=== PATIENT | male | born 1960 | race Caucasian/White ===

== ENCOUNTER 2017-09-01 14:37 | Emergency (ER) | payer OTHER ==
[~2017-09-01] VITALS: Ht 177.8 cm; Wt 111.0 kg
[~2017-09-01 14:37] MED LIST: PREV30CA36; PREV30CA36 PO
[2017-09-01 14:44] VITALS: BP 140/85; PULSE 77; RESP 16; TEMP 97.5; O2SAT 98
[2017-09-01] MEDS ORDERED: BACTOIN EACH NARE (15:20)
[2017-09-01] MEDS ORDERED: DICL75TA PO (15:20)
[2017-09-01] MEDS ORDERED: HYDR-3533 PO (15:20)
[2017-09-01] MEDS ORDERED: BACT800T5 PO (15:20)
--- NOTE | 2017-09-01 15:26 | PD ---
HPI Chief Complaint: Laceration/Skin Injury Time Seen by Provider: 15:10 Travel History International Travel<30 days: No Contact w/Intl Traveler<30days: No Traveled to known affect area: No History of Present Illness HPI 57-year-old male that presents to the ED for evaluation of fall from a ladder. Per patient he fell from a 5 foot ladder and lost his balance. Per patient she did not hit his head or lose consciousness. Patient cut himself on his left leg as well as injured his left thumb has an abrasion to his right arm. He denies any back pain or neck pain. Able to ambulate with no issues. He isn't sure of his last tetanus booster. Per patient his pain is 8 out of 10 especially on the thumb and the laceration on the left leg. Denies any hip pain. No abdominal pain. No chest pain. No blood thinner use. Injury occurred less than 2 hours ago. Able to move all extremities and fingers. Denies any numbness, tilling, weakness. No allergies to medication. PFSH Past Medical History Heart Rhythm Problems: No Cardiac Catheterization: No Cardiovascular Problems: No High Cholesterol: No Congestive Heart Failure: No Diabetes: No GERD: Yes Hypertension: No Myocardial Infarction: No Past Surgical History Coronary Artery Bypass Graft: No Joint Replacement: Yes (RIGHT KNEE) Social History Alcohol Use: Yes (SOCIALLY) Tobacco Use: No Substance Use: No Allergies-Medications (Allergen,Severity, Reaction): Coded Allergies: No Known Allergies (Verified , 09/01/17) Reported Meds & Prescriptions Reported Meds & Active Scripts Active Bactroban Nasal Oint (Mupirocin Nasal Oint) 2% Oint 1 Applic EACH NARE BID For 5 days. Bactrim DS (Sulfamethoxazole-Trimethoprim) 800-160 Mg Tab 1 Tab PO BID 7 Days Lortab (Hydrocodone-Acetaminophen) 5-325 Mg Tab 1 Tab PO Q6H PRN Diclofenac Sodium DR (Diclofenac Sodium) 75 Mg Tabdr 75 Mg PO BID PRN Review of Systems Except as stated in HPI: all other systems reviewed are Neg Physical Exam Narrative GENERAL: SKIN: Warm and dry. HEAD: Atraumatic. Normocephalic. EYES: Pupils equal and round. No scleral icterus. No injection or drainage. ENT: No nasal bleeding or discharge. Mucous membranes pink and moist. Tongue is midline. No uvula deviation. NECK: Trachea midline. No JVD. CARDIOVASCULAR: Regular rate and rhythm. No murmurs, S3, S4. RESPIRATORY: No accessory muscle use. Clear to auscultation. Breath sounds equal bilaterally. GASTROINTESTINAL: Abdomen soft, non-tender, nondistended. Hepatic and splenic margins not palpable. MUSCULOSKELETAL: Extremities without clubbing, cyanosis, or edema. No obvious deformities. Full range of motion of the upper and lower extremities bilaterally. 2+ pulses bilaterally. Patient does have reproducible pain on the left first metacarpal carpal. Some bruising noted but minimal. Patient has a superficial abrasion to the right forearm. Patient does have an abrasion as well as a laceration about 3 cm in length horizontal on the left tibia- fibula. No sign of bony involvement. No foreign body noted. No nerve, vessel , tendon damage noted. Slightly noted. Somewhat approximated. Patient able to move the upper and lower extremities bilaterally in all fingers with no distress. Good capillary refill. Sensation intact bilaterally. No lumbar, thoracic, cervical spine tenderness to palpation. No signs of head injury. NEUROLOGICAL: Awake and alert. No obvious cranial nerve deficits. Motor grossly within normal limits. Five out of 5 muscle strength in the arms and legs. Normal speech. PSYCHIATRIC: Appropriate mood and affect; insight and judgment normal. Data Data Last Documented VS Vital Signs Date Time Temp Pulse Resp B/P (MAP) Pulse Ox O2 Delivery O2 Flow Rate FiO2 09/01/17 14:44 97.5 77 16 140/85 (103) 98 Orders Orders Hand, Complete ([id number]) (09/01/17 15:16) Tibia/Fibula (Ap/Lat) (09/01/17 15:16) Ice/Cold Pack (09/01/17 15:16) Wound Care (09/01/17 15:16) Lidocaine 1% Inj (50 Ml) (Xylocaine 1% I (09/01/17 15:30) Tetanus/Diphtheria Tox Adult (Tetanus/Di (09/01/17 15:30) MDM Medical Decision Making Medical Screen Exam Complete: Yes Emergency Medical Condition: Yes Medical Record Reviewed: Yes Interpretation(s) xray of the left tibia and fibula No show no sign of bony injury. X-ray of the left hand show no sign of acute bony injury. Differential Diagnosis Laceration to his original versus fracture versus fall Narrative Course 57-year-old male that presents to the ED for evaluation of fall. Patient was properly examined and was found to have signs and symptoms concerning for bony injuries as well as lacerations. Imaging was ordered. After splint proceeded to the patient and she agreed to it laceration was repaired as stated in procedure note. Told to get celso removed in 14 days. Given prescription for Bactrim, Lortab, Bactroban and diclofenac sodium. Told to use ice or warm compresses. Watch for signs of infection. X-rays were negative for acute bony injury. Patient was reassured. See ED worsening symptoms. Follow-up with PCP. Procedures Procedure Narrative LACERATION LOCATION: left leg LENGTH: 2.5 cm NUMBER OF STITCHES/CELSO: 7 celso REPAIR: The area of the laceration was prepped with Betadine and sterilely draped. The laceration was infiltrated with 1% Xylocaine. The wound was copiously irrigated and explored without evidence of foreign body, tendon injury or neurovascular injury. The wound was closed using sterile stapler. This was a 1 layer repair. A sterile dressing was applied. The patient was advised to keep the dressing clean and dry. Patient tolerated the procedure well. Diagnosis Primary Impression: Fall Qualified Codes: W19.XXXA - Unspecified fall, initial encounter Additional Impressions: Multiple abrasions Laceration of leg, left Qualified Codes: S81.812A - Laceration without foreign body, left lower leg, initial encounter Patient Instructions: General Instructions Additional Instructions: Wound care daily with soap and water. You can apply bandaid if needed. Neosporyn or OTC antibiotic ointment to area as needed twice a day for at least 2 weeks to help with scarring and prevent infection. Meoderma OTC for scarring if needed. Avoid sun exposure for 2 months as the sun could make scar darker and more noticeable. Get sutures removed in 14 days. Take medications as prescribed. Follow-up with PCP. See ED for any worsening symptoms. Do not drink or drive while taking pain medication. Apply ice or heat as needed for pain Med/Other Pt SpecificInfo: Prescription(s) given, Wound Care Scripts Mupirocin Nasal Oint (Bactroban Nasal Oint) 2% Oint 1 APPLIC EACH NARE BID for Mgmt Bacterial Infection, #1 TUBE 0 Refills For 5 days. Prov: Highet,Yanira H. MD 09/01/17 Sulfamethoxazole-Trimethoprim (Bactrim DS) 800-160 Mg Tab 1 TAB PO BID for Infection for 7 Days, #14 TAB 0 Refills Prov: Yanira Ngo MD 09/01/17 Hydrocodone-Acetaminophen (Lortab) 5-325 Mg Tab 1 TAB PO Q6H Y for PAIN, #10 TAB 0 Refills Prov: Yanira Ngo MD 09/01/[address] (Diclofenac Sodium DR) 75 Mg Tabdr 75 MG PO BID Y for PAIN SCALE 1 TO 10, #20 TAB 0 Refills Prov: Yanira Ngo MD 09/01/17 Disposition: 01 DISCHARGE HOME Condition: Stable Joe Vincent Sep 01, 2017 15:26
[2017-09-01] MEDS ORDERED: LIDOCAINE HCL 1% 50 ML VIAL INFIL ONE (15:30)
[2017-09-01] MEDS ORDERED: TETANUS/DIPHTHERIA TOXOID ADULT 0.5 ML VIAL IM ONE (15:30)
--- NOTE | 2017-09-01 15:45 | RADRPT ---
EXAM DATE/TIME: 09/01/2017 15:21 [facility] COMPARISON: No previous studies available for comparison. INDICATIONS : Left hand pain post fall today. Patient states pain is mostly in first digit. MEDICAL HISTORY : None. SURGICAL HISTORY : None. ENCOUNTER: Initial ACUITY: 1 day PAIN SCORE: 5/10 LOCATION: Left hand. FINDINGS: Three views of the left hand demonstrate no fracture or dislocation. Mineralization is within normal limits and there is no significant arthropathy. No soft tissue abnormality or radiopaque foreign body is identified. A metallic ring overlies the fourth digit. CONCLUSION: No acute abnormality is identified. Marcelo Martines MD on September 01, 2017 at 15:42 Board Certified Radiologist. This report was verified electronically.
--- NOTE | 2017-09-01 15:54 | RADRPT ---
EXAM DATE/TIME: 09/01/2017 15:21 [facility] COMPARISON: No previous studies available for comparison. INDICATIONS : Left lower leg pain post fall. MEDICAL HISTORY : None. SURGICAL HISTORY : None. ENCOUNTER: Initial ACUITY: 1 day PAIN SCORE: 9/10 LOCATION: Left tibia/fibula. FINDINGS: Two view examination of the left tibia demonstrates no evidence of fracture or dislocation. Bony min eralization is normal. The soft tissue structures are intact. CONCLUSION: 1. Negative examination. Boni Fan MD on September 01, 2017 at 15:52 Board Certified Radiologist. This report was verified electronically.
== END 2017-09-01 16:16 | disposition home or self-care (01) ==
LOC: PHEFT 14:37
DX: S81.812A Laceration without foreign body, left lower leg, initial encounter (principal); S50.811A Abrasion of right forearm, initial encounter; W11.XXXA Fall on and from ladder, initial encounter; Z23 Encounter for immunization
CPT/HCPCS: 12001; 73130; 73590; 90471; 90714